=== PATIENT | female | born 1970 | race Caucasian/White ===

== ENCOUNTER 2018-01-13 18:14 | Emergency (ER) | payer SELFPAY ==
--- NOTE | 2018-01-13 19:07 | EDM.PDOC ---
ED HPI GENERAL MEDICAL PROBLEM - General Chief Complaint: Lower Extremity Injury/Pain Stated Complaint: right ankle injury Time Seen by Provider: 01/13/18 19:03 Source of Information: Reports: Patient History Limitations: Reports: No Limitations - History of Present Illness INITIAL COMMENTS - FREE TEXT/NARRATIVE: Patient is a 47-year-old who is seen today with chief complaint of right ankle pain states that she was at a wedding where she twisted her ankle and fell and complained of pain was seen in the ER for treatment x-ray of the ankle reveal fracture of the distal fibula Onset: Today Duration: Hour(s):, Getting Worse Location: Reports: Lower Extremity, Right Quality: Reports: Ache, Throbbing Severity: Mild Improves with: Reports: Immobilization Worsens with: Reports: Movement Context: Reports: Trauma Right Ankle Pain Score (Numeric/FACES): 7 - Related Data Allergies Allergy/AdvReac Type Severity Reaction Status Date / Time No Known Allergies Allergy Verified 09/23/13 20:47 Home Meds: Home Meds HYDROcodone/Ibuprofen [Hydrocodone-Ibuprofen 5-200 mg] 1 each PO BID PRN [History] Past Medical History Musculoskeletal History: Reports: Other (See Below) Other Musculoskeletal History: R foot fracture. Social & Family History - Tobacco Use Smoking Status *Q: Current Every Day Smoker Years of Tobacco use: 5 Packs/Tins Daily: 1 - Recreational Drug Use Recreational Drug Use: No Review of Systems - Review of Systems Review Of Systems: See Below Constitutional: Reports: No Symptoms Eyes: Reports: No Symptoms Ears: Reports: No Symptoms Nose: Reports: No Symptoms Mouth/Throat: Reports: No Symptoms Respiratory: Reports: No Symptoms Cardiovascular: Reports: No Symptoms GI/Abdominal: Reports: No Symptoms Genitourinary: Reports: No Symptoms Musculoskeletal: Reports: Leg Pain, Joint Pain Skin: Reports: No Symptoms Neurological: Reports: No Symptoms Psychiatric: Reports: No Symptoms ED EXAM, GENERAL - Physical Exam Exam: See Below Course - Vital Signs Last Recorded V/S: Last Vital Signs Temp 97.8 F 01/13/18 18:17 Pulse 76 01/13/18 18:17 Resp 20 01/13/18 18:17 BP 108/60 01/13/18 18:17 Pulse Ox 97 01/13/18 18:17 - Orders/Labs/Meds Orders: Active Orders 24 hr Category Date Time Status Ankle Min 3V Rt [CR] Stat Exams 01/13/18 18:16 Taken Departure - Departure Time of Disposition: 19:07 Disposition: Home, Self-Care 01 Condition: Fair Clinical Impression: Stress fracture, right fibula, initial encounter for fracture, Fracture of fibula - Discharge Information *PRESCRIPTION DRUG MONITORING PROGRAM REVIEWED*: No *COPY OF PRESCRIPTION DRUG MONITORING REPORT IN PATIENT MARK: No Referrals: PCP,Unknown [Primary Care Provider] - Care Plan Goals: Patient will be placed on Ultram no one tablet every 6 hours for pain patient is to follow-up with me in 2 weeks for repeat of x-rays - My Orders Last 24 Hours: My Active Orders 01/13/18 18:16 Ankle Min 3V Rt [CR] Stat - Assessment/Plan Last 24 Hours: My Active Orders 01/13/18 18:16 Ankle Min 3V Rt [CR] Stat
== END 2018-01-13 19:25 | disposition home or self-care (01) ==
LOC: LL.ED 18:14
DX: S82.441A Displaced spiral fracture of shaft of right fibula, initial encounter for closed fracture (principal); F17.210 Nicotine dependence, cigarettes, uncomplicated; X50.1XXA Overexertion from prolonged static or awkward postures, initial encounter
CPT/HCPCS: 73610-RT; 99283